=== PATIENT | male | born 1975 | race African-American/Black ===

== ENCOUNTER 2021-04-28 21:01 | Emergency (ER) | payer SELFPAY ==
[~2021-04-28] VITALS: Ht 177.8 cm; Wt 114.0 kg
[2021-04-28 21:18] VITALS: BP 162/99
== END 2021-04-29 00:28 | disposition left against medical advice (07) ==
LOC: ER 21:01
DX: M54.9 Dorsalgia, unspecified (principal); Z53.21 Procedure and treatment not carried out due to patient leaving prior to being seen by health care provider